=== PATIENT | male | born 1940 | race Caucasian/White ===

== ENCOUNTER 2021-06-30 04:33 | Emergency (ER) | payer MEDICARE, MEDICAID ==
[~2021-06-30] VITALS: Ht 182.9 cm; Wt 72.7 kg
[2021-06-30] MEDS ORDERED: DILT120C77 PO (05:22)
[2021-06-30] MEDS ORDERED: BRIM0.2S13 OD (05:22)
[2021-06-30] MEDS ORDERED: VITA500045 PO (05:22)
[2021-06-30] MEDS ORDERED: ACET-683 PO (05:22)
[2021-06-30] MEDS ORDERED: CYMB1CAP5 PO (05:22)
[2021-06-30] MEDS ORDERED: CLOP75TA2 PO (05:22)
[2021-06-30] MEDS ORDERED: PRAM1TAB7 PO (05:22)
[2021-06-30] MEDS ORDERED: FLOM0.4C39 PO (05:22)
[2021-06-30] MEDS ORDERED: SENN-80 PO (05:22)
[2021-06-30] MEDS ORDERED: GABA-1171 PO (05:22)
[2021-06-30] MEDS ORDERED: PROS5TAB PO (05:22)
[2021-06-30] MEDS ORDERED: ISOS1TAB35 PO (05:22)
[2021-06-30] MEDS ORDERED: PRES10CA2 PO (05:22)
[2021-06-30] MEDS ORDERED: COMB0.2S OS (05:22)
[2021-06-30] MEDS ORDERED: FURO40TA2 PO (05:22)
[2021-06-30] MEDS ORDERED: NETA2.5D2 OU (05:22)
[2021-06-30] MEDS ORDERED: ATOR40TA75 PO (05:28)
[2021-06-30] MEDS ORDERED: REFR0.5D8 OU (05:28)
[2021-06-30] MEDS ORDERED: ANTI2TAB16 PO ×2 (05:28)
[2021-06-30] MEDS ORDERED: BIOF4GEL4 TOP (05:28)
[2021-06-30] MEDS ORDERED: MILKSUS3 PO (05:33)
[2021-06-30] MEDS ORDERED: MIRA3350 PO (05:33)
[2021-06-30] MEDS ORDERED: [UNRECOGNIZED DRUG - OTHER] PR (05:33)
[2021-06-30] MEDS ORDERED: PHEN28OI PR (05:33)
[2021-06-30] MEDS ORDERED: MUSC1CRE TOP (05:33)
[2021-06-30] MEDS ORDERED: HOME MED LIST COMPLETE! XX SCH (06:15)
--- NOTE | 2021-06-30 08:02 | REPVR ---
PROCEDURE INFORMATION: Exam: CT Head Without Contrast Exam date and time: 06/30/2021 6:41 AM Age: 81 years old Clinical indication: Injury or trauma; Fall; Concussion/head injury; Additional info: Fall, pain to L parietal, on plavix TECHNIQUE: Imaging protocol: Computed tomography of the head without contrast. Radiation optimization: All CT scans at this facility use at least one of these dose optimization techniques: automated exposure control; mA and/or kV adjustment per patient size (includes targeted exams where dose is matched to clinical indication); or iterative reconstruction. COMPARISON: No relevant prior studies available. FINDINGS: Brain: No acute post-traumatic brain injury. Symmetric prominence of the cortical sulci. Multifocal small-vessel ischemic change. Cerebral ventricles: Ventriculomegaly. Paranasal sinuses: Fluid in a right posterior ethmoidal air cell. Mastoid air cells: No mastoid effusion. Vasculature: Vascular and dural calcification. Bones/joints: No acute calvarial injury. Soft tissues: No significant scalp hematoma. IMPRESSION: No acute post-traumatic brain injury. Electronically signed by: Miguel Angel Santana On 06/30/2021 08:02:08 AM
--- NOTE | 2021-06-30 08:05 | REPVR ---
PROCEDURE INFORMATION: Exam: CT Cervical Spine Without Contrast Exam date and time: 06/30/2021 6:41 AM Age: 81 years old Clinical indication: Neck pain; Additional info: Fall, pain to L parietal, on plavix TECHNIQUE: Imaging protocol: Computed tomography images of the cervical spine without contrast. Radiation optimization: All CT scans at this facility use at least one of these dose optimization techniques: automated exposure control; mA and/or kV adjustment per patient size (includes targeted exams where dose is matched to clinical indication); or iterative reconstruction. COMPARISON: No relevant prior studies available. FINDINGS: Bones/joints: Reversal of normal cervical lordosis. 3 mm anterolisthesis of C3 on C4, C4 on C5, and C7 on T1. No acute bony injury in the visualized cervical spine. Discs/Spinal canal/Neural foramina: Severe multilevel degenerative change.Note that assessment of disc, spinal cord, and nerve root pathology is limited in the absence of intrathecal contrast. Submandibular/Parotid glands: 2 mm calcification in the left parotid gland. Hypopharynx: Nondistention of the left piriform sinus. Lungs: Biapical pleural thickening and airspace disease. Soft tissues: Unremarkable. IMPRESSION: 1. 3 mm anterolisthesis of C3 on C4, C4 on C5, and C7 on T1. 2. No acute bony injury in the visualized cervical spine. Electronically signed by: Miguel Angel Santana On 06/30/2021 08:05:34 AM
--- NOTE | 2021-06-30 08:13 | REPVR ---
PROCEDURE INFORMATION: Exam: XR Left Hip Exam date and time: 06/30/2021 6:01 AM Age: 81 years old Clinical indication: Hip pain; Left hip; Additional info: Fall TECHNIQUE: Imaging protocol: XR Left hip. Views: 2 or 3 views hip with pelvis when performed. COMPARISON: No relevant prior studies available. FINDINGS: Bones/joints: Mild left hip DJD seen with small acetabular osteophyte. No acute fracture. Soft tissues: Unremarkable. IMPRESSION: No fracture or dislocation. Electronically signed by: Dax Riley On 06/30/2021 08:12:59 AM
--- NOTE | 2021-06-30 08:14 | REPVR ---
PROCEDURE INFORMATION: Exam: XR Left Femur Exam date and time: 06/30/2021 7:18 AM Age: 81 years old Clinical indication: Pain; Thigh; Left; Additional info: Fall, pain with palpation TECHNIQUE: Imaging protocol: XR Left femur. Views: 2 views. COMPARISON: CR Hip, Ap,Lat LEFT 06/30/2021 5:26 AM FINDINGS: Bones/joints: There is left knee degenerative changes. There is no fracture or dislocation. Soft tissues: Unremarkable. Vasculature: Femoropopliteal arterial calcifications seen. IMPRESSION: No fracture or dislocation. Electronically signed by: Dax Riley On 06/30/2021 08:14:36 AM
--- NOTE | 2021-06-30 08:17 | REPVR ---
PROCEDURE INFORMATION: Exam: XR Chest Exam date and time: 06/30/2021 7:18 AM Age: 81 years old Clinical indication: Other: Copd; Additional info: SOB, HX copd TECHNIQUE: Imaging protocol: XR of the chest. Views: 2 views. COMPARISON: CT Spine,cervical w/o contrast 06/30/2021 6:46 AM FINDINGS: Lungs: There is biapical symmetric lung changes with pleural thickening. There is lingular atelectatic changes. Pleural spaces: There is symmetric biapical pleural thickening. Heart/Mediastinum: Unremarkable. No cardiomegaly. Bones/joints: Unremarkable. IMPRESSION: 1. No focal consolidation. 2. Lingular atelectatic changes. Electronically signed by: Dax Riley On 06/30/2021 08:17:12 AM
--- NOTE | 2021-06-30 08:57 | REP ---
INDICATION: severe L hip pain after fall, unable to walk. COMPARISON: None. TECHNIQUE: Thin axial scans without contrast. Sagittal coronal reconstructions. FINDINGS: The acetabulum, pubic, ischium,, femoral head and neck are all unremarkable. There are no fractures. There is injury to the hamstring tendon at the musculotendinous junction. IMPRESSION: Sprain hamstring muscle at musculotendinous junction. No bony injury. <Electronically signed by Malick Love > 06/30/21 0830
[2021-06-30 10:31] VITALS: BP 160/72
== END 2021-06-30 10:35 | disposition home or self-care (01) ==
LOC: M ED 04:33
DX: S76.012A Strain of muscle, fascia and tendon of left hip, initial encounter (principal); S76.312A Strain of muscle, fascia and tendon of the posterior muscle group at thigh level, left thigh, initial encounter; S09.90XA Unspecified injury of head, initial encounter; W01.0XXA Fall on same level from slipping, tripping and stumbling without subsequent striking against object, initial encounter; Y92.129 Unspecified place in nursing home as the place of occurrence of the external cause; Y93.9 Activity, unspecified; Y99.9 Unspecified external cause status; M16.12 Unilateral primary osteoarthritis, left hip; M25.752 Osteophyte, left hip; M43.12 Spondylolisthesis, cervical region; M43.13 Spondylolisthesis, cervicothoracic region; I50.9 Heart failure, unspecified; H54.8 Legal blindness, as defined in USA; H40.9 Unspecified glaucoma; J44.9 Chronic obstructive pulmonary disease, unspecified; D64.9 Anemia, unspecified; Z95.5 Presence of coronary angioplasty implant and graft; Z88.1 Allergy status to other antibiotic agents; Z88.2 Allergy status to sulfonamides; Z88.6 Allergy status to analgesic agent; Z91.040 Latex allergy status; Z79.899 Other long term (current) drug therapy

== ENCOUNTER 2021-07-07 13:05 | Inpatient (IN) | payer MEDICARE, MEDICAID ==
[~2021-07-07] VITALS: Ht 182.9 cm; Wt 69.6 kg
[~2021-07-07 13:05] MED LIST: ACET-683 PO; ANTI2TAB16 PO; ATOR40TA75 PO; BIOF4GEL4 TOP; BRIM0.2S13 OD; CLOP75TA2 PO; COMB0.2S OS; CYMB1CAP5 PO; DILT120C77 PO; DOXYCYCLINE HYCLATE 100 MG in D5W MINI-BAG PLUS 100 ML IV SCH; FLOM0.4C39 PO; FURO40TA2 PO; GABA-1171 PO; ISOS1TAB35 PO; MILKSUS3 PO; MIRA3350 PO; MUSC1CRE TOP; NETA2.5D2 OU; PHEN28OI PR; PRAM1TAB7 PO; PRES10CA2 PO; PROS5TAB PO; REFR0.5D8 OU; SENN-80 PO; VITA500045 PO; [UNRECOGNIZED DRUG - OTHER] PR
[2021-07-07] MEDS ORDERED: methylPREDNISolone 125MG 2ML VIAL IV ONE (13:40)
[2021-07-07 14:05] LABS: BASO % 0.2 % (0.0-1.0); EOS # 0.1 10^3/uL (0.0-0.5); EOS % 0.6 % (0.0-3.0); HEMATOCRIT 42.9 % (42.0-52.0); HEMOGLOBIN 13.6 g/dl (13.5-17.5); LYMPH # 0.7 10^3/uL (1.5-5.0); MEAN CORPUSCULAR HEMOGLOBIN 27.8 pg (27.0-33.0); MEAN CORPUSCULAR HGB CONC 31.7 g/dl (32.0-36.5); MEAN CORPUSCULAR VOLUME 87.6 fl (80.0-96.0); MONO # 0.4 10^3/uL (0.0-0.8); MONO % 2.2 % (2.0-8.0); NEUTROPHILS # 15.8 10^3/uL (1.5-8.5); NEUTROPHILS % 92.5 % (36.0-66.0); PLATELET COUNT, AUTOMATED 226 10^3/uL (150-450); WHITE BLOOD COUNT 17.1 10^3/uL (4.0-10.0)
--- NOTE | 2021-07-07 14:13 | REP ---
INDICATION: DYSPNEA/COUGH COMPARISON: 06/30/2021 TECHNIQUE: Portable AP view of the chest FINDINGS: The mediastinum and cardiac silhouette are stable and within normal limits for portable technique. The lung ross demonstrate chronic appearing changes and subtle superimposed left basilar atelectasis cannot be excluded. No discrete consolidation or effusion. No pneumothorax. Skeletal structures are intact. IMPRESSION: Chronic changes. Cannot exclude superimposed left basilar atelectasis. <Electronically signed by Jerzy Brown > 07/07/21 [id number]
[2021-07-07 14:48] LABS: ALBUMIN 3.8 GM/DL (3.2-5.2); ALT/SGPT 31 U/L (12-78); BILIRUBIN,DIRECT 0.1 MG/DL (0.0-0.2); BILIRUBIN,TOTAL 0.5 MG/DL (0.2-1.0); BLOOD UREA NITROGEN 21 MG/DL (7-18); CALCIUM LEVEL 9.1 MG/DL (8.8-10.2); CARBON DIOXIDE LEVEL 27 MEQ/L (21-32); CHLORIDE LEVEL 110 MEQ/L (98-107); CK-MB VALUE MASS 1.7 NG/ML (<3.6); CPK CREATINE PHOSPHOKINASE 198 U/L (39-308); CREATININE FOR GFR 1.03 MG/DL (0.70-1.30); GLOMERULAR FILTRATION RATE > 60.0 (>35); GLUCOSE, FASTING 120 MG/DL (70-100); MB/CK RELATIVE INDEX 0.86 (< OR =4); NT-PRO BNP 101 PG/ML (<450); POTASSIUM SERUM 4.5 MEQ/L (3.5-5.1); SODIUM LEVEL 142 MEQ/L (136-145); TROPONIN I < 0.02 NG/ML (< 0.10)
[2021-07-07] MEDS ORDERED: ISOVUE-370 76% 100ML VIAL As Ordered ONE (14:57)
--- NOTE | 2021-07-07 15:16 | REP ---
INDICATION: increased SOB; r/o infiltrate/effusion COMPARISON: None TECHNIQUE: Axial contrast enhanced images from the thoracic inlet to the upper abdomen with coronal and sagittal reformations using 75 ml Isovue 370 intravenous contrast material. This CT examination was performed using the following dose reduction techniques: Automated exposure control, adjustment of mA and/or kv according to the patient's size, and use of iterative reconstruction technique. FINDINGS: Emphysematous and diffuse chronic interstitial changes are appreciated with superimposed subtle scattered bilateral lower lobe airspace disease suggesting early multifocal pneumonia. No effusion. No pneumothorax. Tracheobronchial tree is patent. Mediastinum demonstrates atherosclerotic changes to the thoracic aorta and coronary arteries without cardiomegaly or pericardial effusion. No significant adenopathy. IMPRESSION: Subtle bibasilar airspace disease suggests early multifocal pneumonia. <Electronically signed by Jerzy Brown > 07/07/21 [id number]
[2021-07-07 16:28] LABS: RSV AMPLIFICATION NEGATIVE (NEGATIVE)
[2021-07-07] MEDS ORDERED: DOXYCYCLINE HYCLATE 100 MG in D5W MINI-BAG PLUS 100 ML IV ONE (16:35)
[2021-07-07] MEDS ORDERED: cefTRIAXone SOD 1 GM in D5W MINI-BAG PLUS 50 ML IV ONE (16:35)
[2021-07-07] MEDS ORDERED: MOM 30ML SUSPENSION UDC PO PRN (18:00)
[2021-07-07] MEDS ORDERED: MAALOX 30 ML SUSP *UDC PO PRN (18:00)
[2021-07-07] MEDS ORDERED: HOME MED LIST COMPLETE! XX SCH (18:10)
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
--- NOTE | 2021-07-07 19:24 | REPVR ---
PROCEDURE INFORMATION: Exam: MR Lumbar Spine Without Contrast Exam date and time: 07/07/2021 7:02 PM Age: 81 years old Clinical indication: Prior surgery; Surgery date: 6+ months; Surgery type: Lumbar fusion; Patient HX: Severe low back pain, le weakness, bladder incontinence; Additional info: R/O cauda equina TECHNIQUE: Imaging protocol: Multiplanar magnetic resonance images of the lumbar spine without intravenous contrast. COMPARISON: CT-Hip WITHOUT CONTRAST 06/30/2021 8:30 AM FINDINGS: Vertebrae: Unremarkable. Spinal epidural space: There is compression of the right anterolateral aspect of the thecal sac at L4-L5 secondary to epidural lipomatosis. Spinal cord: Normal signal. No cord compression. L1-L2: Mild annular bulge L1-L2 without spinal stenosis. L2-L3: Mild annular bulge L2-L3 without spinal stenosis. L3-L4: There is a a severe central spinal stenosis at L3-L4 secondary to diffuse annular bulging, thickened ligamentum flavum with moderate facet joint arthropathy. There is moderate foraminal narrowing on the right and moderate to severe foraminal narrowing on the left. L4-L5: Status post placement of a disc electric meter tester at L4-L5. Bulging annulus L4-L5. Mild degenerative central spinal stenosis. Moderate foraminal narrowing on the right and moderate to severe foraminal narrowing on the left. L5-S1: Status post placement of a disc electric meter tester at L5-S1. There is a moderate to severe central spinal stenosis at L5-S1 secondary to diffuse annular bulging, thickened ligamentum flavum with moderate facet joint arthropathy. There is moderate to severe bilateral foraminal narrowing. Soft tissues: Unremarkable. IMPRESSION: 1. There is a a severe degenerative central spinal stenosis at L3-L4. There is moderate foraminal narrowing on the right and moderate to severe foraminal narrowing on the left. 2. Status post placement of a disc electric meter tester at L4-L5. Bulging annulus L4-L5. Mild degenerative central spinal stenosis. Moderate foraminal narrowing on the right and moderate to severe foraminal narrowing on the left. 3. Status post placement of a disc electric meter tester at L5-S1. There is a moderate to severe central spinal stenosis at L5-S1. There is moderate to severe bilateral foraminal narrowing. 4. There is compression of the right anterolateral aspect of the thecal sac at L4-L5 secondary to epidural lipomatosis. Electronically signed by: Anjum Solis On 07/07/2021 19:23:49 PM
[2021-07-07] MEDS: DULoxetine 30MG CAPSULE (CYMBALTA) PO SCH (20:01)
[2021-07-07] MEDS: ISOSORBIDE MON. (IMDUR) 30 MG XR TAB PO SCH (20:02)
[2021-07-07] MEDS: GABAPENTIN 100 MG CAP PO SCH (20:02)
[2021-07-07] MEDS: ACETAMINOPHEN TAB 650MG DOSE (2X325MG) PO PRN (20:02)
[2021-07-07] MEDS: SENNA 8.6 MG TAB (SENOKOT) PO SCH (20:02)
[2021-07-07 21:12] VITALS: BP 106/64
[2021-07-07] MEDS: PRAMIPEXOLE 1 MG TAB PO SCH (21:44)
[2021-07-07] MEDS: ATORVASTATIN 20 MG TAB PO SCH (21:44)
[2021-07-07] MEDS ORDERED: LEVALBUTEROL 1.25 MG/0.5 ML CONCENTRATE NEB INH PRN (22:20)
[2021-07-08] MEDS: DOXYCYCLINE HYCLATE 100 MG in D5W MINI-BAG PLUS 100 ML IV SCH ×2 (04:25→16:27)
[2021-07-08 06:00] VITALS: BP 124/58
[2021-07-08 07:22] LABS: BASO % 0.1 % (0.0-1.0); HEMATOCRIT 32.5 % (42.0-52.0); LYMPH # 0.8 10^3/uL (1.5-5.0); LYMPH % 4.9 % (24.0-44.0); MEAN CORPUSCULAR HGB CONC 32.6 g/dl (32.0-36.5); MONO # 0.3 10^3/uL (0.0-0.8); MONO % 1.5 % (2.0-8.0); NEUTROPHILS # 15.1 10^3/uL (1.5-8.5); NEUTROPHILS % 92.8 % (36.0-66.0); PLATELET COUNT, AUTOMATED 228 10^3/uL (150-450); RED BLOOD COUNT 3.78 10^6/uL (4.30-6.10); WHITE BLOOD COUNT 16.2 10^3/uL (4.0-10.0)
[2021-07-08 07:23] LABS: HEMOGLOBIN 10.6 g/dl (13.5-17.5)
[2021-07-08 07:29] LABS: ALBUMIN 2.9 GM/DL (3.2-5.2); ALT/SGPT 22 U/L (12-78); BILIRUBIN,TOTAL 0.5 MG/DL (0.2-1.0); BLOOD UREA NITROGEN 22 MG/DL (7-18); CARBON DIOXIDE LEVEL 24 MEQ/L (21-32); CHLORIDE LEVEL 109 MEQ/L (98-107); CREATININE FOR GFR 0.97 MG/DL (0.70-1.30); GLOMERULAR FILTRATION RATE > 60.0 (>35); GLUCOSE, FASTING 190 MG/DL (70-100); MAGNESIUM LEVEL 2.3 MG/DL (1.8-2.4); POTASSIUM SERUM 3.7 MEQ/L (3.5-5.1); SODIUM LEVEL 140 MEQ/L (136-145); TOTAL PROTEIN 6.1 GM/DL (6.4-8.2)
--- NOTE | 2021-07-08 08:54 | ECGEPIP ---
[facility] - ED Test Date: 2021-07-07 Pat Name: LAURENT AMARO Department: Room: - Gender: Male Social Work Assistant: KENNY : [id number] Requested By: WALDO PEREZ Order Number: [id number] Reading MD: Yesica Kimball Measurements Intervals Bulger Rate: 97 P: 84 DE: 188 QRS: 42 QRSD: 64 T: 52 QT: 348 QTc: 441 Interpretive Statements Normal sinus rhythm low voltage limb Septal infarct , age undetermined baseline artifact may affect interpretation No prior Electronically Signed on 07-08-2021 8:53:31 EDT by Yesica Kimball
[2021-07-08] MEDS ORDERED: FINASTERIDE 5 MG TAB PO SCH (09:00)
[2021-07-08] MEDS ORDERED: TAMSULOSIN 0.4 MG CAP PO SCH (09:00)
[2021-07-08] MEDS ORDERED: cefTRIAXone SOD 1 GM in D5W MINI-BAG PLUS 50 ML IV SCH (09:00)
[2021-07-08] MEDS ORDERED: FUROSEMIDE 40 MG TAB PO SCH (09:00)
[2021-07-08] MEDS ORDERED: predniSONE 20 MG TAB PO SCH (09:00)
[2021-07-08] MEDS ORDERED: ENOXAPARIN 40MG/0.4ML SYRINGE (J1650 PER 10MG) SC SCH (09:00)
[2021-07-08] MEDS ORDERED: CLOPIDOGREL 75 MG TAB PO SCH (09:00)
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
[2021-07-08 14:30] LABS: MRSA PCR SCREEN NOT DETECTED (NEGATIVE)
[2021-07-08] MEDS ORDERED: PRED20TA PO (19:09)
[2021-07-08] MEDS: SENNA 8.6 MG TAB (SENOKOT) PO SCH (20:21)
[2021-07-08] MEDS: GABAPENTIN 100 MG CAP PO SCH (20:22)
[2021-07-08 20:23] VITALS: BP 118/58
[2021-07-08] MEDS: ISOSORBIDE MON. (IMDUR) 30 MG XR TAB PO SCH (20:23)
[2021-07-08] MEDS: ATORVASTATIN 20 MG TAB PO SCH (20:23)
[2021-07-08] MEDS: PRAMIPEXOLE 1 MG TAB PO SCH (20:24)
[2021-07-08] MEDS: DULoxetine 30MG CAPSULE (CYMBALTA) PO SCH (20:24)
[2021-07-08] MEDS: ACETAMINOPHEN TAB 650MG DOSE (2X325MG) PO PRN (20:25)
[2021-07-08 21:00] VITALS: BP 118/58
[2021-07-08 22:25] VITALS: BP 132/66
== END 2021-07-08 22:48 | disposition short-term general hospital (02) | DRG 195 ==
LOC: EDBD 13:05 → M ED 13:05 → M ED INP 17:59 → M MSPAV 21:12
PROVIDERS: ADMIT Family Medicine; ATTEND Family Medicine
DX: J18.9 Pneumonia, unspecified organism (principal); J44.9 Chronic obstructive pulmonary disease, unspecified; I50.9 Heart failure, unspecified; D64.9 Anemia, unspecified; R29.6 Repeated falls; G25.81 Restless legs syndrome; I25.10 Atherosclerotic heart disease of native coronary artery without angina pectoris; Z95.2 Presence of prosthetic heart valve; M54.5 Low back pain; N40.0 Benign prostatic hyperplasia without lower urinary tract symptoms; G62.9 Polyneuropathy, unspecified; M51.37 Other intervertebral disc degeneration, lumbosacral region; Z79.899 Other long term (current) drug therapy; Z88.2 Allergy status to sulfonamides; Z88.5 Allergy status to narcotic agent; Z91.040 Latex allergy status; Z88.8 Allergy status to other drugs, medicaments and biological substances